=== PATIENT | female | born 1980 | race Caucasian/White ===

== ENCOUNTER 2022-07-18 06:51 | Inpatient (IN) ==
--- NOTE | 2022-07-11 14:37 | History & Physical Report ---
Date of Service July 11, 2022 Assessment & Plan (1) Goiter: Plan: Thyroidectomy. (2) Hypothyroidism: History of Present Illness Chief Complaint: Thyroid goiter. Primary Care Provider: Deedee Joseph MD This 41-year-old lady, who lives with her mother, developed progressively enlarging thyroid goiter, evaluated by Dr. Toro, TPO antibody negative, autoimmune thyroid goiter with progressive enlargement, last ultrasound showed 6.3 cm right and 6.3 cm left thyroid lobe, fairly symmetric. Endocrinology evaluated for possible I-131 therapy versus thyroidectomy. Patient preferred thyroidectomy in view of all the changes and endocrinology agreed. Allergies Allergy/AdvReac Type Severity Reaction Status Date / Time acetaminophen [From NyQuil] Allergy Hives Verified 04/18/22 08:09 dextromethorphan Allergy Hives Verified 04/18/22 08:09 [From NyQuil] doxylamine [From NyQuil] Allergy Hives Verified 04/18/22 08:09 pseudoephedrine [From NyQuil] Allergy Hives Verified 04/18/22 08:09 Home Medications Medication Instructions Recorded Confirmed Type apremilast 30 mg tablet (Otezla) 60 mg PO DAILY 12/08/21 01/18/22 History loratadine 10 mg tablet 10 mg PO DAILY 12/08/21 01/18/22 History Past Med/Surg History Medical History Goiter Surgical History History of appendectomy History of esophagogastroduodenoscopy (EGD) History of liver biopsy History of oral surgery History of tonsillectomy and adenoidectomy Family History Mother Hypertension Grandmother (Maternal) Psoriasis Family/Other Breast cancer Other No family history of adverse response to anesthesia No family history of bleeding disorder Social History Smoking Status: Never smoker Hx Alcohol Use: No Hx Substance Use: No marital status: Single current occupational status: employed current occupation: [employer] Physical Exam Constitutional: WD/WN, vitals as above Eyes: PERRL, conjunctivae normal, anicteric sclerae ENMT: external ear and nose normal, oropharynx normal Neck: Thyroid: + thyromegaly Diffuse 6.3 cm right and 6.3 cm left thyroid lobe enlargement Respiratory: normal respiratory effort, lungs clear to auscultation PG Care Time/CCT Total # of Minutes Spent Total Time Spent with Patient: Total time spent is greater than 50% in coordination of care (as documented) at patient's floor/unit and/or counseling patient: Coding Level of Care Code None Diagnoses Goiter E04.9 Hypothyroidism E03.9
--- NOTE | 2022-07-13 09:14 | Anesthesiology Consultation ---
Date of Service July 13, 2022 Assessment & Plan (1) Encounter for pre-operative examination: - COVID screening: Per assessment on 07/13: No known COVID-19 positive contacts or current COVID-19 related symptoms. Travel screen negative. Patient vaccinated. At surgeon discretion if preop Covid testing being done. - Check test AM DOS Chart Review Chart Review: Acceptable Risk for Surgery (pending evaluation AM DOS) and Patient NOT seen in Pre Admission Testing History Surgery Operation Date: 07/18/22 07:00 Proposed Procedures p Total Thyroidectomy - Ree Alves MD Height/Weight Height: 5 ft 4 in Weight: 79.379 kg Allergies Allergy/AdvReac Type Severity Reaction Status Date / Time acetaminophen [From NyQuil] Allergy Hives Verified 07/13/22 08:33 dextromethorphan Allergy Hives Verified 07/13/22 08:33 [From NyQuil] doxylamine [From NyQuil] Allergy Hives Verified 07/13/22 08:33 pseudoephedrine [From NyQuil] Allergy Hives Verified 07/13/22 08:33 Medications Home Medications Medication Instructions Recorded Confirmed Last Taken apremilast 30 mg tablet (Otezla) 30 mg PO BID 12/08/21 07/13/22 Unknown acetaminophen 325 mg tablet 325 mg PO QID PRN Pain 07/13/22 07/13/22 Unknown (Tylenol) cetirizine 10 mg tablet (Zyrtec) 10 mg PO PM 07/13/22 07/13/22 Unknown chlorhexidin-isopropyl alcohol 1 dose PO UD 07/13/22 07/13/22 Unknown ipratropium bromide 21 mcg (0.03 2 spray intranasal BID PRN Allergy 07/13/22 07/13/22 Unknown %) nasal spray Symptoms nystatin 100,000 unit/mL oral 1 ml buccal DAILY 07/13/22 07/13/22 Unknown suspension pseudoephedrine 30 1 tab PO DAILY PRN Pain 07/13/22 07/13/22 Unknown mg-acetaminophen 500 mg tablet Past Medical History Medical History (Updated 07/13/22 @ 09:11 by Kyleigh Treadwell) Goiter Poor dentition Has several teeth ("broken") that need pulled per pt (planning to have done after surgery) Psoriatic arthritis Thrush Prescribed nystatin/chlorhexidine rinses Past Family History Family History Mother Hypertension Grandmother (Maternal) Psoriasis Family/Other Breast cancer Other No family history of adverse response to anesthesia No family history of bleeding disorder Past Surgical History Surgical History History of esophagogastroduodenoscopy (EGD) History of exploratory laparotomy History of liver biopsy History of tonsillectomy and adenoidectomy History of wisdom tooth extraction S/P thyroid biopsy benign Social History Smoking Status: Never smoker Do You Dip or Chew Tobacco: No Hx Alcohol Use: No Hx Substance Use: No substance use type: does not use
[~2022-07-18 06:51] MED LIST: LR 15ML/HR IV SCH
[2022-07-18] MEDS ORDERED: ONDANSETRON INJ 2 MG/ML 2 ML VIAL ONE ×2 (07:45→09:31)
[2022-07-18] MEDS ORDERED: ROCURONIUM BROMIDE 10 MG/ML 5 ML VIAL IV ONE (07:45)
[2022-07-18] MEDS ORDERED: SUCCINYLCHOLINE CHLORIDE 20 MG/ML 10 ML VIAL IV ONE (07:45)
[2022-07-18] MEDS ORDERED: DEXAMETHASONE SOD INJ 4 MG/ML VIAL ONE ×2 (07:45→09:31)
[2022-07-18] MEDS ORDERED: LIDOCAINE 2% MPF LOCAL 5 ML VIAL INFIL ONE (07:45)
[2022-07-18] MEDS ORDERED: PROPOFOL IV EMULSION 10 MG/ML 20 ML VIAL IV ONE (07:45)
[2022-07-18] MEDS ORDERED: fentaNYL citrate 100 MCG/2 ML VIAL ONE ×2 (07:46→11:24)
[2022-07-18] MEDS ORDERED: MIDAZOLAM HCL 1 MG/ML 2ML VIAL ONE (07:46)
[2022-07-18] MEDS ORDERED: ceFAZolin 2000MG 2,000 MG/15 ML SYR IV ONE (08:04)
[2022-07-18] MEDS ORDERED: ceFAZolin 2,000 MG/15 ML IV PUSH IV ONE (08:06)
[2022-07-18] MEDS ORDERED: BACITRACIN OINT 15 GM TUBE ONE (08:18)
[2022-07-18] MEDS ORDERED: LIDOCAINE 2%/EPINEPHRINE 1:100,000 20ML INFIL ONE (08:18)
--- NOTE | 2022-07-18 08:25 | History & Physical Bridge Note ---
Date of Service July 18, 2022 History & Physical Bridge Note I have examined the patient, reviewed the History & Physical and in the interval since the performance of the History & Physical I have noted the following changes of clinical significance: no changes noted
[2022-07-18] MEDS ORDERED: fentaNYL citrate 100 MCG/2 ML VIAL IV PRN (08:43)
[2022-07-18] MEDS ORDERED: ONDANSETRON INJ 2 MG/ML 2 ML VIAL IV PRN ×2 (08:43→12:01)
[2022-07-18] MEDS ORDERED: KETOROLAC 30 MG/ML VIAL IV PRN (08:43)
[2022-07-18] MEDS ORDERED: PROMETHAZINE HCL 6.25 MG in SODIUM CHLORIDE 0.9% 50 ML IV PRN (08:43)
[2022-07-18] MEDS ORDERED: ATROPINE SULFATE 0.1 MG/ML 10ML SYR IV PRN (08:43)
[2022-07-18] MEDS ORDERED: PHENYLEPHRINE 100MCG/ML 5ML SYR ONE (09:31)
[2022-07-18] MEDS ORDERED: ePHEDrine sulfate 50 MG/ML SYR ONE (09:31)
[2022-07-18] MEDS ORDERED: oxyCODONE/ACETAMINOPHEN 5mg/325mg TAB PO PRN (12:01)
--- NOTE | 2022-07-18 12:14 | Operative Report ---
PG Post Operative Report Pre & Post Diagnosis Operation Date: 07/18/22 08:55 Pre-Op Diagnosis: Goiter Post-Op Diagnosis: Goiter I identified the patient and participated in the time-out.: Yes Procedure Operation Date: 07/18/22 08:55 Actual Procedures p Total Thyroidectomy(Not Applicable) - Ree Alves MD Surgeon Ree Alves MD Lozenge Maker Helper Dr. Sylvester stated in assisted for 80% of the case Estimated Blood Loss 100 Findings Consistent with Post-Op Diagnosis Large thyroid goiter Specimens Right and left lobe thyroid Drains Giovani x2 Anesthesia Type General Complications None Description of Procedure She was brought to the operating room, properly identified, prepped ChloraPrep and draped in the usual sterile manner after general endotracheal anesthesia. Nims monitor with the Nims endotracheal tube was set up for monitoring. Incision line was 2 cm above the sternal notch, marked with silk suture, injected with 2% Xylocaine with 1 20,000 strength epinephrine, incised using #10 blade through the skin, subcutaneous layer, platysma layer. Superior and inferior flaps were elevated. Bleeders were controlled using cautery. Further dissection was performed using the harmonic scalpel. Midline dissection was performed the strap muscles. Left lobe of the thyroid was dissected free from the surrounding strap muscles. Dissection was started superiorly exposing the superior lobe, clamping and dividing the vessels with the harmonic scalpel and freeing up the superior pole. Midpole was dissected free and the thyroid was flipped medially. Middle thyroidal vein was not encountered. Inferiorly the thyroid was lifted up. Dissection was continued superiorly. A small parathyroid identified inferiorly still attached to the branch of the inferior thyroidal artery was from the inferior portion of the thyroid and kept in the thyroid bed. Thyroid isthmus was transected and in this manner the left lobe was removed. The recurrent laryngeal nerve was found using the Nims stimulator obtaining action potential. Attention was turned to the right lobe. Again dissection was started at the superior pole and then the middle pole and then the inferior pole. At the end of the dissection a 1 cm section of the thyroid was preserved against the tracheal cartilage to preserve the recurrent laryngeal nerve creating a wedge shaped remaining portion of the thyroid approximately 1 cm wide and 3 cm long. The recurrent laryngeal nerve was found just underneath this piece of thyroid and the cricothyroid membrane using the Nims monitor obtaining the action potential. The wedge-shaped thyroid remaining was sewn upon itself closing the capsule of the thyroid using interrupted 3-0 Vicryl sutures and left in place leaving a 3 cm x 1 cm sized portion of the thyroid. The thyroid bed was irrigated copious amounts of saline. Hemostasis controlled using the bipolar cautery. Lohman drain was placed in the depths of the wound, 1 on each side. Incision was closed with interrupted 3-0 Vicryl sutures on the platysma layer, interrupted 3-0 Vicryl sutures on the subcutaneous layer, and interrupted 5 oh and then 6-0 nylon sutures on the skin. Giovani drain was sewn in place. She tolerated procedure well was taken recovery area in satisfactory condition. I attest to the content of the Intraoperative Record and any orders documented therein. Any exceptions are noted below.
[2022-07-18] MEDS ORDERED: SODIUM CHLORIDE 0.9% 50 ML BAG ONE (12:32)
[2022-07-18] MEDS ORDERED: PROMETHAZINE HCL INJ 25 MG/ML 1 ML VIAL ONE (12:33)
--- NOTE | 2022-07-18 14:00 | Anesthesiology Progress Note ---
Date of Service July 18, 2022 Anesthesia Post Procedure Vital Signs Vital Signs: Temp Pulse Pulse Resp BP Pulse Ox O2 Del Method 07/18/22 13:45 96 H 16 136/79 96 Room Air 07/18/22 13:30 91 H 15 125/81 95 Room Air 07/18/22 13:15 36.7 C 95 H 17 133/80 96 Room Air 07/18/22 13:05 36.7 C 94 H 15 125/84 95 Room Air 07/18/22 12:55 36.7 C 96 H 18 127/79 96 Room Air 07/18/22 12:45 36.7 C 97 H 15 125/85 95 Room Air 07/18/22 12:35 108 H 18 141/84 H 96 Room Air 07/18/22 12:15 105 H 12 111/80 99 Oxymask 07/18/22 12:05 106 H 15 126/93 100 Oxymask 07/18/22 12:25 102 H 13 130/77 96 Room Air 07/18/22 11:56 36.3 C L 106 H 15 123/87 99 Oxymask 07/18/22 07:41 37 C 80 20 146/94 H 100 Room Air O2 Flow Rate 07/18/22 13:45 07/18/22 13:30 07/18/22 13:15 07/18/22 13:05 07/18/22 12:55 07/18/22 12:45 07/18/22 12:35 07/18/22 12:15 8 07/18/22 12:05 8 07/18/22 12:25 07/18/22 11:56 8 07/18/22 07:41 Transfer of Care Handoff Completed per policy Notes Mental Status: alert / awake / arousable Patient Amnestic to Procedure: Yes Nausea / Vomiting: adequately controlled Pain: adequately controlled Airway Patency, RR, SpO2: stable & adequate BP & HR: stable & adequate Hydration State: stable & adequate Anesthetic Complications: no major complications apparent
[2022-07-18] MEDS ORDERED: ISOPROPYL ALCOHOL PO SCH (16:01)
[2022-07-18] MEDS ORDERED: CHLORHEXIDINE PO SCH (16:01)
[2022-07-18] MEDS ORDERED: PSEUDOEPHEDRINE PO PRN (16:01)
[2022-07-18] MEDS ORDERED: ACETAMINOPHEN PO PRN (16:01)
[2022-07-18] MEDS ORDERED: IPRATROPIUM BROMIDE NASAL SPRAY 0.06% 15ML NAE PRN ×2 (16:29→16:45)
[2022-07-18] MEDS: LACTATED RINGER'S 1,000 ML IV SCH (16:48)
[2022-07-18] MEDS ORDERED: CETIRIZINE HCL 10 MG TABLET PO SCH (21:00)
[2022-07-18] MEDS: ACETAMINOPHEN 325 MG TAB PO PRN (22:59)
[2022-07-19] MEDS: LACTATED RINGER'S 1,000 ML IV SCH ×2 (05:43→17:35)
[2022-07-19] MEDS ORDERED: NYSTATIN SUSP 500,000 U/5 ML UDC BUCCAL SCH (09:00)
[2022-07-19] MEDS: ACETAMINOPHEN 325 MG TAB PO PRN ×2 (09:14→15:37)
--- NOTE | 2022-07-19 17:09 | Discharge Summary ---
Date of Service July 19, 2022 Admission HPI Per Admitting Provider This 41-year-old lady, who lives with her mother, developed progressively enlarging thyroid goiter, evaluated by Dr. Toro, TPO antibody negative, autoimmune thyroid goiter with progressive enlargement, last ultrasound showed 6.3 cm right and 6.3 cm left thyroid lobe, fairly symmetric. Endocrinology evaluated for possible I-131 therapy versus thyroidectomy. Patient preferred thyroidectomy in view of all the changes and endocrinology agreed. Admission Exam (Per Admitting) Constitutional WD/WN, vitals as above Eyes PERRL, conjunctivae normal, anicteric sclerae ENMT external ear and nose normal, oropharynx normal Neck Thyroid: + thyromegaly Respiratory normal respiratory effort, lungs clear to auscultation Discharge Data Procedures Performed Operation Date: 07/18/22 08:55 Actual Procedures p Total Thyroidectomy(Not Applicable) - Ree Alves MD Hospital Course (1) Goiter: Thyroidectomy 07/18, no Cx., Ca++ 8.3 postop, eating well no pain, drain in place, no sign of hematoma (2) Hypothyroidism: recheck next Sat., start synthroid then
== END 2022-07-19 18:41 | disposition home or self-care (01) | DRG 627 ==
LOC: ASU 06:51 → PACUINP 12:15 → 3N 15:57